=== PATIENT | male | born 1990 | race Caucasian/White ===

== ENCOUNTER → 2019-08-13 | Outpatient (CLI) | payer OTHER ==
--- NOTE | 2019-08-13 10:39 | KCIC ---
EXAM: MRI RIGHT ANKLE/HINDFOOT DATE: 08/13/2019 9:30 AM CLINICAL INDICATION: Right ankle pain and swelling, pain, trauma COMPARISON: None. TECHNIQUE: Multiplanar, multisequence MR imaging of the right ankle was performed without IV contrast. FINDINGS: No significant ankle joint effusion. Tendons: The medial flexor tendons including the posterior tibialis, flexor digitorum longus and flexor hallucis longus are intact. No tenosynovitis. The lateral flexor tendons including the radius longus and brevis are seen posterior to the lateral malleolus without evidence for subluxation/dislocation, grossly normal in signal and morphology, intact. No tenosynovitis. The extensor tendons are normal in signal and morphology, intact. The Achilles tendon is normal in morphology. Mild Kager fat pad edema. Mildly low-lying soleus. Physiologic fluid at the retrocalcaneal bursa. Mild thickening of the central band plantar fascia without significant associated edema. Ligaments: Medial deltoid stabilizers are intact. Lateral collateral stabilizing ligaments including the anterior talofibular ligament are intact. Anterior and posterior tibiofibular ligaments are intact. Spring ligament intact. Ligaments of the Sinus Tarsi are intact. Spaces/Places: Sinus Tarsi within normal limits, without mass lesion or edema pattern. Tarsal tunnel within normal limits, without mass lesion. Articular Cartilage/joint line: Articular cartilage at the tibiotalar joint preserved. Negative osteochondral lesion of the talar dome. Chondral thinning posterior subtalar joint with subchondral edema. Marginal joint spaces appear preserved including calcaneocuboid joint. Bone/Bone Marrow: Marrow edema is seen within the calcaneus laterally at the posterior subtalar joint as well as within the talus at the talar dome and lateral talar process as well as the anterior tibia at the tibial plafond Diffuse soft tissue edema overlying the medial malleolus. IMPRESSION: 1. Edema within the calcaneus, talus and anterior tibia without discrete associated fracture line favored to represent bone contusion. In addition degenerative change may also result in similar appearance given the chondral thinning at the posterior subtalar joint. 2. Mild Kager fat pad edema may also be traumatic. Achilles tendon is intact, normal in signal and morphology. Electronically signed by: Abelino Cabrera MD (08/13/2019 10:35 AM) [id number]
== END | disposition home or self-care (01) ==
LOC: KCIC MRI 09:02
PROVIDERS: ATTEND Family Medicine
DX: M25.471 Effusion, right ankle (principal)
CPT/HCPCS: 73721